=== PATIENT | female | born 1965 | race Caucasian/White ===

== ENCOUNTER 2016-12-06 19:46 | Emergency (ER) | payer MEDICAID ==
[~2016-12-06] VITALS: Ht 157.5 cm; Wt 101.6 kg
[2016-12-06] MEDS ORDERED: HYDROcodone-ACET 7.5/325MG TAB PO ONE (20:45)
[2016-12-06] MEDS ORDERED: KETOROLAC TROMETH 60MG/2ML VIAL IM ONE (20:45)
[2016-12-06] MEDS ORDERED: ALBUTEROL SULF 2.5 MG/0.5ML(0.5%) NEB SOLN NEB ONE (21:00)
[2016-12-06 21:57] VITALS: BP 104/57
== END 2016-12-06 23:33 | disposition home or self-care (01) ==
LOC: ER 19:49
DX: S13.9XXA Sprain of joints and ligaments of unspecified parts of neck, initial encounter (principal); J45.909 Unspecified asthma, uncomplicated; Z88.2 Allergy status to sulfonamides; X58.XXXA Exposure to other specified factors, initial encounter; Y93.89 Activity, other specified; Y99.8 Other external cause status; Y92.89 Other specified places as the place of occurrence of the external cause
CPT/HCPCS: 72125; 93005; 94640; 96372; 99284; J1885; L0120

== ENCOUNTER 2016-12-07 12:20 | Emergency (ER) | payer MEDICAID ==
[~2016-12-07] VITALS: Ht 157.5 cm; Wt 98.0 kg
[2016-12-07 13:31] VITALS: BP 120/75
[2016-12-07] MEDS ORDERED: ONDANSETRON HCL 4 MG/2 ML VIAL IM ONE (13:45)
[2016-12-07] MEDS ORDERED: HYDROmorphone HCL 2 MG/ML VL IM ONE (13:45)
== END 2016-12-07 14:33 | disposition home or self-care (01) ==
LOC: ER 12:20
DX: S16.1XXA Strain of muscle, fascia and tendon at neck level, initial encounter (principal); J45.909 Unspecified asthma, uncomplicated; W19.XXXA Unspecified fall, initial encounter; Y93.89 Activity, other specified; Y99.8 Other external cause status; Y92.89 Other specified places as the place of occurrence of the external cause; Z88.6 Allergy status to analgesic agent
CPT/HCPCS: 96372; 99284; J1170; J2405

== ENCOUNTER 2016-12-09 14:04 | Emergency (ER) | payer MEDICAID ==
[~2016-12-09] VITALS: Ht 157.5 cm; Wt 98.0 kg
[2016-12-09 14:25] VITALS: BP 115/61
[2016-12-09] MEDS ORDERED: ONDANSETRON ODT 4 MG TAB PO ONE (22:00)
== END 2016-12-09 21:50 | disposition home or self-care (01) ==
LOC: ER 14:04
DX: R51 Headache (principal); J45.909 Unspecified asthma, uncomplicated; W18.39XA Other fall on same level, initial encounter; Y93.89 Activity, other specified; Y92.89 Other specified places as the place of occurrence of the external cause; Y99.8 Other external cause status
CPT/HCPCS: 70450; 99284; Q0162